=== PATIENT | male | born 1985 | race African-American/Black ===

== ENCOUNTER 2022-11-27 20:50 | Emergency (ER) | payer OTHER ==
[~2022-11-27] VITALS: Ht 195.6 cm; Wt 84.8 kg
--- NOTE | 2022-11-27 22:33 | NUR ---
BIBS FOR FEVER, CHILLS, AND BODY ACHES X 5 DAYS. pt to bed 11. [id number]. -sob. nad noted. pending er provider nate
[2022-11-27] MEDS ORDERED: ACETAMINOPHEN ES 500 MG TABLET ONE (22:59)
[2022-11-27] MEDS ORDERED: ACETAMINOPHEN 325 MG TABLET PO ONE (23:00)
[2022-11-28 01:27] LABS: BILIRUBIN,URINE 1+ (NEGATIVE); COLOR,URINE YELLOW (YELLOW); LEUKOCYTE ESTERASE ,URINE NEGATIVE (NEGATIVE); NITRITE, URINE NEGATIVE (NEGATIVE); PROTEIN,URINE 3+ mg/dl (NEGATIVE); UGLUCOSE NEGATIVE (NEGATIVE); UROBILINOGEN,URINE 0.2 EU/dL (0.2)
[2022-11-28 01:51] LABS: BACTERIA,URINE Few /HPF (None Seen); WBC,URINE 0-2 /HPF (0-3)
[2022-11-28 01:52] LABS: MUCUS,URINE Many /LPF (None Seen); SQUAMOUS EPITHELIAL CELL,UR Few /HPF (None Seen)
--- NOTE | 2022-11-28 02:00 | NUR ---
Patient discharged to home in stable condition. Written and verbal after care instructions given. Patient verbalizes understanding of instruction.
[2022-11-28 02:04] VITALS: BP 115/70
== END 2022-11-28 02:04 | disposition home or self-care (01) ==
LOC: ER 20:58
DX: B34.9 Viral infection, unspecified (principal); R50.9 Fever, unspecified; Z20.822 Contact with and (suspected) exposure to COVID-19
CPT/HCPCS: 99284; 71045; 87426; 87804 ×2; 81001; A6403 ×2; C9803